=== PATIENT | male | born 2000 | race Caucasian/White ===

== ENCOUNTER 2021-11-12 04:19 | Emergency (ER) | payer MEDICAID, SELFPAY ==
[2021-11-12 04:20] VITALS: BP 128/89; PULSE 93; RESP 18; TEMP 36.2; O2SAT 96; BMI 40.4
--- NOTE | 2021-11-12 04:28 | RAD_ITS ---
HISTORY: cough EXAMINATION/TECHNIQUE: XR Chest 1 View: COMPARISON: May 22, 2012 FINDINGS: LINES/DEVICES: None. LUNGS: No airspace consolidation. Unremarkable interstitium. No effusion. No pneumothorax. MEDIASTINUM: No cardiomegaly. MUSCULOSKELETAL: No acute osseous finding. RAD/Chest 1 View (Portable) IMPRESSION: No evidence of acute cardiopulmonary process. at 0449 Reported and signed by: Aj Gomez MD Electronically Signed: Aj Gomez MD at 4:48 EST ,
--- NOTE | 2021-11-12 04:29 | EX.ED.DYSGE1 ---
HPI History of Present Illness Chief Complaint: Cough Informant: patient Onset/Context/Timing Onset: Days Context: Gradual Onset Current Severity: Mild Maximum Severity: Moderate Narrative Narrative: Patient presents secondary to cough and congestion for the past couple days. He states he went to the urgent care yesterday got tested for flu and Covid but would not have answers back for 48 hours. He is on his way to work this morning when he got a coughing fit and started dry heaving and vomiting. He denies having fever. He states he has yellow mucus from his nose and when he coughs. [facility] Medical History GERD (gastroesophageal reflux disease) Home Medications benzonatate 200 mg PO BID PRN #14 cap 11/12/21 [Rx Last Taken Unknown] pantoprazole 20 mg PO DAILY 11/12/21 [History Last Taken Unknown] Allergy/AdvReac Type Severity Reaction Status Date / Time No Known Allergies Allergy Verified 11/12/21 04:23 Social History Smoking Status: Current every day smoker tobacco type: cigarettes ROS ROS ED Constitutional Constitutional ED: Denies chills or fever(s) Eyes Eyes: Denies change in vision ENT ENT ED: Reports sore throat and other Details: Congestion Cardiovascular Cardiovascular: Denies chest pain Respiratory/Chest Respiratory/Chest: Reports cough, dyspnea and sputum Gastrointestinal Gastrointestinal: Reports vomiting and other Details: Posttussive emesis ; Denies abdominal pain, diarrhea or nausea Genitourinary Genitourinary ED: Denies dysuria Musculoskeletal Musculoskeletal: Denies back pain Integumentary Denies rash Neurologic Neurologic: Denies headache(s) or weakness Allergic/Immunologic Allergic/Immunologic ED: Denies urticaria EXAM Physical Exam Const Vital Signs: 11/12/21 04:20 11/12/21 04:24 Temperature 97.2 F L Temperature Source Temporal Pulse Rate 93 Respiratory Rate 18 Respiratory Effort Normal Non-Labored Respiratory Depth Normal Respiratory Pattern Normal Blood Pressure 128/89 H Blood Pressure Mean 102 Pulse Ox 96 Oxygen Delivery Method Room Air Room Air Positive well nourished and well developed General Appearance ED: well developed HEENT Reports moist mucous membranes Eyes PERRL and EOMs intact bilaterally Neck supple Chest Wall inspection of chest normal and palpation of chest normal Resp normal respiratory effort and clear to auscultation bilaterally Cardio regular rate and regular rhythm GI non-tender Palpation: soft Extremity normal to inspection Neuro oriented x3 Sensorium / Orientation: alert Psych mental status grossly normal Skin no rashes or lesions noted MDM MDM MDM Narrative Medical decision making narrative: Patient given Naprosyn and Tessalon Perles. Verbal chest x-ray and Covid swab obtained. Lab Data Attestation: I reviewed the patient's lab results. Labs: Rapid Covid: Negative Radiography Chest X-Ray - ED: 1 View, Read by ED Physician, Normal, Heart, Lungs and Mediastinum Diagnostic Testing: Clinical Impression(s) from Imaging Studies Chest X-Ray 11/12/21 04:28 IMPRESSION: No evidence of acute cardiopulmonary process. at 0449 Reported and signed by: Aj Gomez MD Electronically Signed: Aj Gomez MD at 4:48 EST , Treatment and Re-Evaluation Comments:: Rapid Covid test is negative. Chest x-ray reveals no infiltrate. Test results discussed with the patient. I did discuss with him that a viral illness will typically take 3 weeks to run its course. Return instructions provided. Prescription for Tessalon will be sent to the pharmacy for him. Discharge Plan Triage Chief Complaint: Cough ED Provider: Nata Terry Dx/Rx/DC Orders Clinical Impression: Viral URI Instructions: ED URI, Viral, No Abx (Adult) Prescriptions: New benzonatate 200 mg capsule 200 mg PO BID PRN (Reason: cough) Qty: 14 RF: 0 No Action pantoprazole 20 mg tablet,delayed release (DR/EC) 20 mg PO DAILY RF: 0 Primary Care Provider: Care Physician,No Primary Referrals: Davin Wheeler DO [STAFF PHYSICIAN] - As Needed Care Physician,No Primary [Primary Care Provider] - Disposition Disposition: Home, Self Care
[2021-11-12] MEDS: Benzonatate 100 MG Capsule 200 MG PO (04:34)
[2021-11-12] MEDS: Naproxen 500 MG Tablet PO (04:34)
== END 2021-11-12 05:40 | disposition home or self-care (01) ==
PROVIDERS: Emergency Provider Emergency Medicine; Visit Provider Emergency Medicine
DX: J06.9 Acute upper respiratory infection, unspecified (principal); F17.210 Nicotine dependence, cigarettes, uncomplicated; K21.9 Gastro-esophageal reflux disease without esophagitis
CPT/HCPCS: 71045; 87426; 99283

== ENCOUNTER 2022-03-14 16:04 | Emergency (ER) | payer MEDICAID, SELFPAY ==
[2022-03-14 16:05] VITALS: BP 146/88; PULSE 92; RESP 16; TEMP 36.6; O2SAT 98; BMI 38.7
[2022-03-14 16:54] VITALS: BP 126/78; PULSE 78; RESP 16; TEMP 36.9; O2SAT 98
[2022-03-14] MEDS: Gentamicin Sulfate 1 OPTH.BTL 2 DRP RIGHT EYE (16:54)
--- NOTE | 2022-03-14 17:08 | EX.ED.VIS.EY ---
HPI History of Present Illness Chief Complaint: Eye Problem Narrative Narrative: 20-year-old male with right eye swelling and erythema to the right eye. He states it was worse earlier. Patient is a noncontact wearer. He denies any trauma. He denies pain with eye movement. He denies visual complaint. No known sick contacts. His eye is slightly watery however is not had matted eyelids. PFSH PFS Medical History (Updated 03/14/22 @ 16:11 by Slade Ferreira) GERD (gastroesophageal reflux disease) Seasonal allergies Home Medications benzonatate 200 mg PO BID PRN #14 cap 11/12/21 [Rx Last Taken Unknown] pantoprazole 20 mg PO DAILY 11/12/21 [History Last Taken Unknown] gentamicin 1 drp EACH EYE BID #5 ml 03/14/22 [Rx Last Taken Unknown] Allergy/AdvReac Type Severity Reaction Status Date / Time No Known Allergies Allergy Verified 03/14/22 16:06 Social History Smoking Status: Current every day smoker tobacco type: cigarettes ROS ROS ED Constitutional Constitutional ED: Denies chills, fever(s) or sweats Eyes Eyes: Reports other Details: Right eye irritation and redness ; Denies blurry vision or change in vision ENT ENT ED: Denies ear pain or sore throat Cardiovascular Cardiovascular: Denies chest pain, palpitations or racing heartbeat Respiratory/Chest Respiratory/Chest: Denies cough, dyspnea or sputum Gastrointestinal Gastrointestinal: Denies abdominal pain, constipation, diarrhea, nausea or vomiting Genitourinary Genitourinary ED: Denies dysuria, hematuria or urinary frequency Musculoskeletal Musculoskeletal: Denies arthralgias, myalgias or neck pain Integumentary Denies abscess, Abrasions or rash Neurologic Neurologic: Denies headache(s), paresthesias or weakness Psychiatric Psychiatric: Denies anxiety, depression, suicidal ideation or suicidal thoughts Endocrine Endocrinology: Denies polydipsia or polyuria EXAM Physical Exam Const Vital Signs: 03/14/22 16:05 03/14/22 16:54 Temperature 98 F 98.4 F Temperature Source Temporal Pulse Rate 92 78 Respiratory Rate 16 16 Blood Pressure 146/88 H 126/78 H Blood Pressure Mean 107 Pulse Ox 98 98 Oxygen Delivery Method Room Air Positive well nourished General Appearance ED: Negative for pallor HEENT Reports normocephalic, head/scalp atraumatic and moist mucous membranes Eyes PERRL and EOMs intact bilaterally Eyes Narrative: No pain with extraocular motion Alignment: alignment normal Periorbital: periorbital findings normal Eyelid: eyelids normal Conjunctiva: conjunctiva abnormal right injection diffuse Sclera: sclera abnormal Positive for right Details: scleral injection Details: Positive for diffuse Cornea: cornea normal Pupil: PERRL Neck no lymphadenopathy and supple Chest Wall inspection of chest normal and palpation of chest normal Resp normal respiratory effort and clear to auscultation bilaterally Auscultation: Negative for rales, rhonchi or wheezes Cardio regular rate and regular rhythm GI normal to inspection, nondistended, normoactive bowel sounds Narrative: Deferred Back/Spine Cervical Spine: Negative for cervical spine tenderness Extremity General Extremety ED: Yes tenderness Neuro oriented x3 and CN's II-XII intact bilaterally Sensorium / Orientation: alert Motor Exam: strength 5/5 throughout Psych mental status grossly normal Attitude: No agitated Skin no rashes or lesions noted and no wounds General Skin Exam: Negative for jaundice or pallor MDM MDM MDM Narrative Medical decision making narrative: Patient with scleral injection in the right eye. His eyelids do not appear red and matted. No history or signs of trauma. Vision is normal. He is a noncontact wearer. Patient will be started on gentamicin ophthalmic with first dose in the ER as he is concerned for bacterial infection. Patient given ophthalmology follow-up. Impression: 1. Conjunctivitis Discharge Plan Triage Chief Complaint: Eye Problem ED Provider: Donato Craven Dx/Rx/DC Orders Instructions: ED Conjunctivitis, Bacterial Prescriptions: New gentamicin 0.3 % drops 1 drp EACH EYE BID Qty: 5 RF: 0 No Action pantoprazole 20 mg tablet,delayed release (DR/EC) 20 mg PO DAILY RF: 0 benzonatate 200 mg capsule 200 mg PO BID PRN (Reason: cough) Qty: 14 RF: 0 Stand Alone Forms: ED Work / School Excuse Primary Care Provider: Care Physician,No Primary Referrals: Dieter León MD [STAFF PHYSICIAN] - 3-5 Days Care Physician,No Primary [Primary Care Provider] - Disposition Disposition: Home, Self Care Discharge Date/Time: 03/14/22 16:58
== END 2022-03-14 16:58 | disposition home or self-care (01) ==
PROVIDERS: Emergency Provider Student in an Organized Health Care Education/Training Program; Visit Provider Student in an Organized Health Care Education/Training Program
DX: H10.9 Unspecified conjunctivitis (principal); F17.210 Nicotine dependence, cigarettes, uncomplicated; K21.9 Gastro-esophageal reflux disease without esophagitis
CPT/HCPCS: 99282

== ENCOUNTER 2022-04-27 00:25 | Emergency (ER) | payer MEDICAID, SELFPAY ==
[2022-04-27 00:26] VITALS: BP 159/94; PULSE 69; RESP 18; TEMP 36.5; O2SAT 98; BMI 40.4
--- NOTE | 2022-04-27 01:06 | EDS_ITS ---
HPI History of Present Illness Chief Complaint: Dental Narrative Narrative: Patient is a 21-year-old male who states he has a history of dental problems. He states he believes a filling fell out a few weeks ago and over the last few days has been having increased left upper facial/dental pain with no trauma. He denies any fevers or chills or difficulty breathing or swallowing. He states he cannot get into see his dentist for about 10 days and with concern for infection he presents for evaluation. [facility] Medical History (Updated 04/27/22 @ 01:[address] Conor Garcia DO) GERD (gastroesophageal reflux disease) Seasonal allergies Home Medications benzocaine 10 % mucosal gel 1 applic mucous membrane Q1H 04/27/22 [History Last Taken Unknown] penicillin V potassium 500 mg tablet 500 mg PO 4X/DAY 10 days #40 tabs 04/27/22 [Rx Last Taken Unknown] Allergy/AdvReac Type Severity Reaction Status Date / Time No Known Allergies Allergy Verified 04/27/22 00:29 Social History Smoking Status: Current every day smoker tobacco type: cigarettes ROS ROS ED Constitutional Constitutional ED: Denies chills or fever(s) ENT ENT ED: Reports other Details: Positive dental pain ; Denies sore throat Cardiovascular Cardiovascular: Denies chest pain Respiratory/Chest Respiratory/Chest: Denies cough or dyspnea Gastrointestinal Gastrointestinal: Denies abdominal pain, diarrhea, nausea or vomiting Genitourinary Genitourinary ED: Denies dysuria Musculoskeletal Musculoskeletal: Denies myalgias Integumentary Denies rash Neurologic Neurologic: Denies headache(s) Hematologic/Lymphatic Hematologic/Lymphatic: Denies easy bleeding or easy bruising EXAM Physical Exam Const Vital Signs: 04/27/22 00:26 04/27/22 01:41 Temperature 97.7 F L 98.2 F Temperature Source Temporal Temporal Pulse Rate 69 78 Respiratory Rate 18 15 Blood Pressure 159/94 H 132/74 H Blood Pressure Mean 115 93 Pulse Ox 98 99 Oxygen Delivery Method Room Air Room Air Positive well nourished and well developed General Appearance ED: well developed HEENT Reports moist mucous membranes HEENT Narrative: Dental caries are noted without obvious dental abscess no tongue or lip swelling no oral lesions no airway edema or compromise Eyes PERRL and EOMs intact bilaterally Neck supple Neck Narrative: No brawny edema in the submental space to suggest Olu's angina Resp normal respiratory effort and clear to auscultation bilaterally Cardio regular rate and regular rhythm Extremity normal to inspection Neuro oriented x3 and CN's II-XII intact bilaterally Sensorium / Orientation: alert Psych mental status grossly normal Skin no rashes or lesions noted MDM MDM MDM Narrative Medical decision making narrative: Patient presented to the ER afebrile without signs of respiratory distress or Olu's angina. Therefore I felt no need for imaging or laboratory studies. Patient's history and exam is consistent with an underlying early dental infection. Therefore he will be placed on Pen-Vee K secondary to this. He was given a dental block to the left superior alveolar nerve using 1.5 mL of 2% lidocaine with epinephrine and 1.5 mL of 0.5% Marcaine. Patient tolerated procedure well and achieved good anesthesia without complication. At this time as he has no signs of systemic infection or respiratory distress he is otherwise safe for discharge Discharge Plan Triage Chief Complaint: Dental ED Provider: Conor Garcia Dx/Rx/DC Orders Clinical Impression: Dental infection, Dental caries Instructions: ED Dental Pain, ED Dental Abscess Prescriptions: New penicillin V potassium 500 mg tablet 500 mg PO 4X/DAY 10 Days Qty: 40 0RF No Action Orajel 10 % Gel 1 applic MUCOUS MEMBRANE Q1H Stand Alone Forms: ED Work / School Excuse Primary Care Provider: Care Physician,No Primary Referrals: Care Physician,No Primary [Primary Care Provider] - Activity Restrictions/Additional Instructions: Please use Tylenol and Motrin for pain control and take your antibiotic as directed to resolve your infection. Keep your appointment with your dentist for further evaluation and return to the ER should you have any further concerns Disposition Disposition: Home, Self Care Discharge Date/Time: 04/27/22 01:42
[2022-04-27] MEDS: Bupivacaine Mpf 0.5% 30 ML VIAL INFILT (01:14)
[2022-04-27] MEDS: Penicillin Vk 250 MG Tablet 500 MG PO (01:14)
[2022-04-27 01:41] VITALS: BP 132/74; PULSE 78; RESP 15; TEMP 36.8; O2SAT 99
== END 2022-04-27 01:42 | disposition home or self-care (01) ==
LOC: ED 01:14
PROVIDERS: Emergency Provider Emergency Medicine; Visit Provider Emergency Medicine
DX: K04.7 Periapical abscess without sinus (principal); K02.9 Dental caries, unspecified; F17.210 Nicotine dependence, cigarettes, uncomplicated; K21.9 Gastro-esophageal reflux disease without esophagitis
CPT/HCPCS: 64450; 99282

== ENCOUNTER 2022-06-16 16:57 | Emergency (ER) | payer MEDICAID, SELFPAY ==
[2022-06-16 16:58] VITALS: BP 155/88; PULSE 99; RESP 16; TEMP 36; O2SAT 98; BMI 37.3
--- NOTE | 2022-06-16 17:27 | EX.ED.UPPERE ---
HPI History of Present Illness Chief Complaint: Laceration Informant: patient Narrative Narrative: [id number] male presents mandolin slicer injury to the left pinky finger at work. No anticoagulations. Tetanus 2 years ago. Bleeding with a pressure dressing. Denies history of similar. No allergies. No other injuries. Tetanus Immunization: <[address] [facility] Medical History GERD (gastroesophageal reflux disease) Seasonal allergies Home Medications benzocaine 10 % mucosal gel 1 applic mucous membrane Q1H 04/27/22 [History Last Taken Unknown] penicillin V potassium 500 mg tablet 500 mg PO 4X/DAY 10 days #40 tabs 04/27/22 [Rx Last Taken Unknown] Allergy/AdvReac Type Severity Reaction Status Date / Time No Known Allergies Allergy Verified 06/16/22 16:59 Social History Smoking Status: Current every day smoker tobacco type: cigarettes ROS ROS ED Constitutional Constitutional ED: Denies chills, fever(s) or sweats Eyes Eyes: Denies change in vision ENT ENT ED: Denies dysphagia or sore throat Cardiovascular Cardiovascular: Denies chest pain, leg edema, palpitations or racing heartbeat Respiratory/Chest Respiratory/Chest: Denies cough, dyspnea or dyspnea on exertion Gastrointestinal Gastrointestinal: Denies abdominal pain, diarrhea, nausea or vomiting Genitourinary Genitourinary ED: Denies dysuria, hematuria or urinary frequency Musculoskeletal Musculoskeletal: Denies back pain, extremity pain or neck pain Integumentary Reports wounds and other Details: Left pinky injury ; Denies rash Neurologic Neurologic: Denies headache(s), paresthesias or weakness EXAM Physical Exam Const Vital Signs: 06/16/22 16:58 Temperature 96.8 F L Temperature Source Temporal Pulse Rate 99 Respiratory Rate 16 Blood Pressure 155/88 H Blood Pressure Mean 110 Pulse Ox 98 Oxygen Delivery Method Room Air Positive well nourished and well developed General Appearance ED: well developed and NAD HEENT Reports moist mucous membranes normocephalic and atraumatic Eyes PERRL, EOMs intact bilaterally and conjunctivae normal General Eye ED: Yes normal appearance of both eyes Neck no lymphadenopathy and supple General: Negative for tenderness Chest Wall Chest: Negative for tenderness Resp normal respiratory effort and normal air movement Effort and Inspection: symmetric chest movement; Negative for respiratory distress Cardio regular rate, regular rhythm and no murmurs Peripheral Pulses: pulses 2+ throughout GI normal to inspection, nondistended, normoactive bowel sounds and non-tender Palpation: Negative for guarding or rebound tenderness present Back/Spine no CVA tenderness and no thoracic nor lumbar tenderness Extremity Extremity Narrative: Left hand pinky: Partial-thickness slice of the volar aspect of the distal lateral pinky ulnar side. No nail bed involvement. Minimal bleeding. No joint involvement. General Extremety ED: Negative for edema or tenderness General Extremity: Negative for edema Neuro oriented x3 and no sensory deficits noted Sensorium / Orientation: awake and alert Skin no rashes or lesions noted and no wounds MDM MDM MDM Narrative Medical decision making narrative: Patient is skin avulsion from slicer, thoroughly cleanse, LET was placed, bleeding controlled. Surgifoam pad with dressing was placed. Appropriate work restrictions and follow-up with [employer] [facility]. Wound care discussed. AlumaFoam cage splint provided. Discharge Plan Triage Chief Complaint: Laceration ED Provider: Dave Manuel Dx/Rx/DC Orders Clinical Impression: Avulsion of skin of finger, Injury of left little finger Instructions: ED Skin Avulsion Prescriptions: No Action Orajel 10 % Gel 1 applic MUCOUS MEMBRANE Q1H penicillin V potassium 500 mg tablet 500 mg PO 4X/DAY 10 Days Qty: 40 0RF Primary Care Provider: Care Physician,No Primary Referrals: Care Physician,No Primary [Primary Care Provider] - Activity Restrictions/Additional Instructions: No handling of food with injured hand. Follow-up with [facility] for [employer] [facility] of your choice. Disposition Disposition: Home, Self Care Discharge Date/Time: 06/16/22 18:58
[2022-06-16] MEDS: Lidocaine/Epi/Tetracaine 50 ML 1 APPLIC TOPICAL (17:33)
[2022-06-16] MEDS: Gelatin Sponge Absorbable 50cm (1) 1 EACH TOPICAL (18:39)
== END 2022-06-16 18:58 | disposition home or self-care (01) ==
PROVIDERS: Emergency Provider Emergency Medicine; Visit Provider Emergency Medicine
DX: S69.92XA Unspecified injury of left wrist, hand and finger(s), initial encounter (principal); F17.210 Nicotine dependence, cigarettes, uncomplicated; K21.9 Gastro-esophageal reflux disease without esophagitis; W26.8XXA Contact with other sharp object(s), not elsewhere classified, initial encounter; Y99.0 Civilian activity done for income or pay
CPT/HCPCS: 99283

== ENCOUNTER 2022-08-01 17:14 | Emergency (ER) | payer MEDICAID, SELFPAY ==
[2022-08-01 17:15] VITALS: BP 135/80; PULSE 90; PULSE 92; RESP 16; TEMP 36.7; O2SAT 98; O2SAT 99; BMI 40.1
[2022-08-01] MEDS: DiphenhydrAMINE 50 MG/ML Syringe 25 MG IV (17:40)
--- NOTE | 2022-08-01 18:07 | EDS_ITS ---
HPI History of Present Illness Chief Complaint: Allergic Reaction Informant: patient Onset/Context/Timing Onset: Today (20 min ago) Context: Sudden Onset (about 10 min after eating) Timing: Continuous Quality: swelling, congestion Location: face/nose Current Severity: Moderate Maximum Severity: Moderate Worsened by: nothing Relieved by: nothing Associated Symptoms Associated Symptoms: scratchy throat, mild trouble breathing Narrative Narrative: Patient ate shrimp [place]in mein from a local [employer] restaurant, in addition to sushi from a local grocery store that had imitation crab as well as some raw salmon and maybe some raw tuna. He states he eats this combination of food often. He has never had an allergic reaction but states 10 minutes later, his eyelids swelled and he developed lots of nasal congestion and scratchy throat without throat swelling. He felt short of breath, he agrees that it is mostly because of all of the nasal congestion, he denies any symptoms in his chest, hands, feet, no rash or itching. Denies any near-syncope or syncope or chest discomfort. PFSH PFS Medical History GERD (gastroesophageal reflux disease) Seasonal allergies Smoker Home Medications omeprazole 40 mg capsule,delayed release 40 mg PO DAILY 08/01/22 [History Last Taken Unknown] prednisone 20 mg tablet 40 mg PO QHS #4 TABLETS 08/01/22 [Rx Last Taken Unknown] Allergy/AdvReac Type Severity Reaction Status Date / Time No Known Allergies Allergy Verified 08/01/22 17:15 Social History Smoking Status: Current every day smoker tobacco type: cigarettes ROS ROS ED Constitutional Constitutional ED: Denies chills or fever(s) Eyes Eyes: Denies change in vision or diplopia ENT ENT ED: Reports as per HPI, nasal congestion and sore throat; Denies dizziness or rhinorrhea Cardiovascular Cardiovascular: Reports leg edema; Denies chest pain or palpitations Respiratory/Chest Respiratory/Chest: Denies cough or dyspnea Gastrointestinal Gastrointestinal: Denies abdominal pain, diarrhea, nausea or vomiting Genitourinary Genitourinary ED: Denies dysuria or hematuria Musculoskeletal Musculoskeletal: Denies back pain or neck pain Integumentary Denies abscess or rash Neurologic Neurologic: Denies headache(s), paresthesias or weakness Psychiatric Psychiatric: Denies anxiety or suicidal thoughts EXAM Physical Exam Const Vital Signs: 08/01/22 17:15 08/01/22 17:15 Temperature 98.0 F Temperature Source Temporal Pulse Rate 92 90 Respiratory Rate 16 16 Blood Pressure 135/80 H 135/80 H Blood Pressure Mean 98 98 Pulse Ox 98 99 Oxygen Delivery Method Room Air Room Air Positive well nourished and well developed General Appearance ED: well developed and NAD HEENT Reports moist mucous membranes HEENT Narrative: Eyelids are edematous, eyes are normal. Nasal congestion. No stridor. Posterior pharynx clear and without erythema, asymmetry. There is no trismus. Voice normal. normocephalic and atraumatic Eyes PERRL and EOMs intact bilaterally Neck full ROM, no lymphadenopathy and supple Resp normal respiratory effort and clear to auscultation bilaterally Cardio regular rate, regular rhythm and no murmurs GI non-tender and non-distended Auscultation: normoactive bowel sounds Palpation: soft Back/Spine no CVA tenderness General Back: other FROM Extremity normal to inspection Extremity Narrative: No edema in upper or lower extremities General Extremety ED: Negative for edema, pulses abnormal or tenderness General Extremity: Negative for edema or pulses abnormal Neuro oriented x3, CN's II-XII intact bilaterally and no sensory deficits noted Sensorium / Orientation: awake and alert Motor Exam: strength 5/5 throughout Skin no rashes or lesions noted and no wounds MDM MDM MDM Narrative Medical decision making narrative: Patient's vital signs are normal and he is not edematous except for his eyelids. He has no pain there. That and his nasal congestion suggest possibly a histamine mediated swelling in his face, making scombroid fish poisoning in the differential diagnosis here more so than anaphylaxis. Not able to rule out some type of allergic reaction, but I gave him Benadryl 25 mg IV and monitored him, he states it helped some, he did still have some swelling and nasal congestion, he developed no worsening symptoms his vital signs remain normal, so I will give him a dose of Solu-Medrol and sent him home with a 2-day course of prednisone in addition to today, and advised Benadryl as needed and to avoid the raw fish from this particular area in the future. We discussed signs and symptoms of anaphylaxis and reasons to return. Discharge Plan Triage Chief Complaint: Allergic Reaction ED Provider: Shan Jin Dx/Rx/DC Orders Clinical Impression: Scombroid fish poisoning, accidental (unintentional), initial encounter Instructions: ED Scombroid Fish Poisoning Prescriptions: New prednisone 20 MG tablet 40 mg PO QHS Qty: 4 0RF No Action omeprazole 40 mg Capsule,Delayed Release(Dr/Ec) 40 mg PO DAILY Primary Care Provider: Care Physician,No Primary Referrals: Care Physician,No Primary [Primary Care Provider] - Doctor,Your [Non-Staff] - 3-5 Days if not improving Disposition Disposition: Home, Self Care
[2022-08-01 18:55] VITALS: BP 109/66; PULSE 59; PULSE 64; RESP 19; O2SAT 94
[2022-08-01] MEDS: MethylPREDNISolone 125 MG/2 ML Vial IV (18:59)
== END 2022-08-01 19:03 | disposition home or self-care (01) ==
PROVIDERS: Emergency Provider Emergency Medicine; Visit Provider Emergency Medicine
DX: T61.11XA Scombroid fish poisoning, accidental (unintentional), initial encounter (principal); F17.210 Nicotine dependence, cigarettes, uncomplicated; Y92.511 Restaurant or cafe as the place of occurrence of the external cause; R09.81 Nasal congestion
CPT/HCPCS: 96374; 96375; 99284; A4216

== ENCOUNTER 2022-12-10 23:24 | Emergency (ER) | payer MEDICAID, SELFPAY ==
[2022-12-10 23:25] VITALS: BP 123/79; PULSE 101; RESP 19; TEMP 38.9; O2SAT 98; BMI 38.7
--- NOTE | 2022-12-11 00:15 | CT_ITS ---
STUDY: CT SOFT TISSUE NECK WITH CONTRAST REASON FOR EXAM: Male, 22 years old. Peritonsillar abscess ?? RADIATION DOSAGE (If Supplied By Facility): CTDIvol = ( 16.24 ) mGy, DLP = ( 499.10 ) mGycm TECHNIQUE: The patient was scanned in a multi-detector CT scanner. High resolution transaxial imaging was performed following intravenous administration of IV 100mL Isovue-370. Sagittal and coronal images were reconstructed. Individualized dose optimization techniques were used for this CT. COMPARISON: None. FINDINGS: Normal bilateral parotid glands. Normal bilateral robotic technician spaces. There is a mildly narrowed appearance of the parapharyngeal spaces due to the enlargement of the tonsillar tissues. Normal bilateral carotid spaces. Normal bilateral sublingual and submandibular glands and spaces. Normal visualized nasopharynx. Normal retropharyngeal space. Normal perivertebral space. There is an enlarged appearance of the bilateral partial tonsils which meet in the middle without evidence of abscess formation. This is best appreciated on image 52 series 601 and image 59 series 2. This does narrow the oral space. There are enlarged cervical lymph nodes. There are multilevel reactive appearing lymph nodes. There are lymph nodes, jugulodigastric lymph nodes on the left measuring 1.5 x 1.0 cm and on the right measuring 3.4 and 2.0 cm. There is a left-sided lymph node measuring 2.6 cm. There is no demonstrated solid or cystic mass lesion. There is no abnormal contrast enhancement. There are lymph nodes deep to the right-sided sternoclavicular muscle. There are multiple lymph nodes demonstrated along the posterior cervical spaces measuring up to 1 cm. Normal epiglottis, bilateral vallecula and hypopharynx. The pre-epiglottic and paraglottic adipose spaces are normal. Normal visualized bilateral piriform sinuses, aryepiglottic folds, vocal cords, and arytenoid-cricoid articulations. Normal subglottic trachea. Normal bilateral lobes of the thyroid gland. Normal visualized pulmonary apices. Normal visualized paranasal sinuses. Normal visualized cervical spine. CT/Soft Tissue Neck WITH Contrast IMPRESSION: Hypertrophy of the tonsillar tissues likely associated with tonsillitis as detailed above. No visualized abscess formation. Numerous reactive lymph nodes throughout the neck soft tissues. Electronically Signed: Nisa Lynn MD at 1:22 EST Reading Location ID and State: [facility] / [place] Tel , Service support ,
--- NOTE | 2022-12-11 00:18 | EX.ED.DYSGE1 ---
HPI History of Present Illness Chief Complaint: General Illness Detail of Chief Complaint: Sore throat Informant: patient Onset/Context/Timing Onset: Days Context: Gradual Onset Timing: Continuous Current Severity: Moderate Maximum Severity: Moderate Narrative Narrative: 22-year-old male past medical history of reflux and depression. Said he went to the [facility] urgent care 3 days ago said he had a negative rapid strep and negative mono and a put him on Augmentin for tonsillitis. Has been on Augmentin 875 twice daily for last 3 days. Said he is feeling his get any better. He has a sore throat but is able to swallow. He feels dehydrated. He said since he started the antibiotics the last 2 days he has had loose stools. Did not even know he had a fever until he presented today in triage and has a temperature of 102. Denies vomiting. Mild cough. Prior similar symptoms: Yes Recent Illness/Hospitalization: No PFSH PFSH Medical History GERD (gastroesophageal reflux disease) Seasonal allergies Smoker Home Medications amoxicillin 875 mg-potassium clavulanate 125 mg tablet 1 tab PO BID 12/10/22 [History Last Taken Unknown] Allergy/AdvReac Type Severity Reaction Status Date / Time No Known Allergies Allergy Verified 12/10/22 23:31 Surgical History no surgical history Social History Smoking Status: Current every day smoker tobacco type: cigarettes ROS ROS ED ROS Narrative Fever. Sore throat. Body aches. Cough. Review of Systems ROS Unobtainable: Denies due to encephalopathy Constitutional Constitutional ED: Reports chills and fever(s) Eyes Eyes: Denies blurry vision ENT ENT ED: Reports sore throat; Denies ear pain or rhinorrhea Cardiovascular Cardiovascular: Denies chest pain Respiratory/Chest Respiratory/Chest: Reports cough; Denies dyspnea Gastrointestinal Gastrointestinal: Reports diarrhea; Denies abdominal pain or nausea Genitourinary Genitourinary ED: Denies dysuria or hematuria Musculoskeletal Musculoskeletal: Denies arthralgias Integumentary Denies abscess Neurologic Neurologic: Denies headache(s) Psychiatric Psychiatric: Denies anxiety Endocrine Endocrinology: Denies cold intolerance Hematologic/Lymphatic Hematologic/Lymphatic: Reports none Allergic/Immunologic Allergic/Immunologic ED: Denies mouth swelling or tongue swelling EXAM Physical Exam Narrative Exam Narrative: 22-year-old male vital signs fever 102. Clinically looks lean and feel well does not look septic or toxic. H EENT exam TMs are unremarkable. Posterior pharynx is significantly swollen. Tonsils are touching. He has bilateral exudate. I do not see any obvious abscess. He is able to swallow. He has moist mucous membranes. Neck is nontender with no significant lymphadenopathy. No tracheal tenderness. No meningismus. Lungs are clear equal symmetrical. Dry cough. Heart tachycardic rate about 101 no murmur. Abdomen soft nontender. Moving all 4 extremities. Calves are nontender without edema. Neurologically is awake and alert. Skin no rashes. Const Vital Signs: 12/10/22 23:25 12/10/22 23:52 12/11/22 01:30 Temperature 102.0 F H 100.2 F H Temperature Source Temporal Oral Pulse Rate 101 H 87 Respiratory Rate 19 H 15 Respiratory Effort Normal Respiratory Pattern Normal Blood Pressure 123/79 H 106/55 L Blood Pressure Mean 93 72 Pulse Ox 98 97 Oxygen Delivery Method Room Air Room Air Positive well nourished, well developed and obese; Negative for cachectic, contractures or unkempt General Appearance ED: well developed and NAD; Negative for unkempt, cachectic, contractures, cyanotic, diaphoretic or pallor Nutritional Appearance: obese; Negative for cachectic HEENT Reports moist mucous membranes HEENT Narrative: Posterior pharyngeal erythema. Enlarged tonsils touching. Bilateral exudate. No obvious abscess seen. Negative for trauma or tenderness Eyes PERRL and EOMs intact bilaterally General Eye ED: Negative for pale conjunctiva or scleral icterus Neck no lymphadenopathy, supple and no JVD General: Negative for tenderness Lymph Lymphatic: Negative for other Chest Wall inspection of chest normal and palpation of chest normal Chest: Negative for other Resp normal respiratory effort and clear to auscultation bilaterally Effort and Inspection: Negative for retractions Auscultation: Negative for rales, rhonchi or wheezes Cardio regular rhythm, S1 normal heart sound, S2 normal heart sound and no murmurs; Negative for regular rate Rate: tachycardic GI normal to inspection, nondistended, normoactive bowel sounds, non-tender, non-distended and no masses Inspection: Negative for abdominal distention Palpation: soft; Negative for tender or guarding Back/Spine no CVA tenderness General Back: Negative for CVA tenderness Cervical Spine: Negative for cervical spine tenderness Thoracic Spine / Upper Back: Negative for thoracic spinal tenderness Lumbar Spine / Lower Back: Negative for lumbar spinal tenderness Extremity normal to inspection General Extremety ED: Negative for edema or tenderness General Extremity: Negative for edema Neuro oriented x3 and CN's II-XII intact bilaterally Sensorium / Orientation: alert; Negative for orientation impaired, lethargic or stuporous Motor Exam: strength 5/5 throughout Psych mental status grossly normal Appearance: Negative for unkempt Attitude: No agitated Mood & Affect: Negative for depressed, anxious or tearful Skin no rashes or lesions noted, no wounds and skin turgor normal General Skin Exam: elasticity normal; Negative for jaundice or pallor Lesions: No lesion noted Rashes: No rashes noted Trauma: Negative for abrasion Wounds: Negative for wounds noted MDM MDM MDM Narrative Medical decision making narrative: Young male has bilateral exudative tonsillitis. He is not improving on 3 days of Augmentin. Has a fever. Will be treated with IV fluids for dehydration. Tylenol for the fever. Labs are being obtained including a rapid strep and mono of her own even though these are he is already supposedly had these done in urgent care and reportedly were negative. CT of his neck to rule out a peritonsillar abscess since is not improving has been on antibiotics multiple days. Repeat exam patient is doing well at 2:10 AM. We went over all his test results and CAT scan. They are comfortable being discharged home. He will be referred to a local primary care physician and ENT if he is not improving. Fluids and rest. Tylenol Motrin. Warm salt water gargling Chloraseptic spray. Continue and finish his current antibiotic which is Augmentin. Lab Data Attestation: I reviewed the patient's lab results. Lab results narrative: CBC unremarkable white count 9. H&H of 15 and 44. Platelets 216. Electrolytes unremarkable potassium slightly low at 3.3 normal gap of 8 normal BUN and creatinine. Glucose 96. Monoscreen negative. Rapid strep and COVID both negative. CAT scan, soft tissue of the neck, shows no abscess. Consistent with tonsillitis. Read by the radiologist. Labs: Laboratory Results - last 24 hr 12/11/22 12/11/22 12/11/22 00:30 00:30 00:30 WBC 9.0 RBC 5.23 Hgb 15.4 Hct 44.4 MCV 84.9 MCH 29.4 MCHC 34.7 RDW Std Deviation 37.9 RDW Coeff of Yodit 12.3 Plt Count 216 MPV 8.8 Immature Gran % (Auto) 0.300 Neut % (Auto) 73.6 H Lymph % (Auto) 14.6 L [place] % (Auto) 11.1 H Eos % (Auto) 0.0 Baso % (Auto) 0.4 Absolute Neuts (auto) 6.6 Absolute Lymphs (auto) 1.31 Nucleated RBC % 0 Sodium 137 Potassium 3.3 L Chloride 101 Carbon Dioxide 28.0 Anion Gap 8 BUN 15 Creatinine 1.04 Estim Creat Clear Calc 113.09 Est GFR (MDRD) Af Amer 113 Est GFR (MDRD) Non-Af 93 BUN/Creatinine Ratio 14.4 Glucose 96 Calcium 9.0 Monoscreen Negative Radiography Diagnostic Testing: Clinical Impression(s) from Imaging Studies Soft Tissue Neck CT 12/11/22 00:15 IMPRESSION: Hypertrophy of the tonsillar tissues likely associated with tonsillitis as detailed above. No visualized abscess formation. Numerous reactive lymph nodes throughout the neck soft tissues. Electronically Signed: Nisa Lynn MD at 1:22 EST Reading Location ID and State: [facility] / [place] Tel , Service support , Discharge Plan Triage Chief Complaint: General Illness ED Provider: Will Carl Dx/Rx/DC Orders Clinical Impression: Acute tonsillitis Instructions: ED Tonsillitis Prescriptions: No Action amoxicillin-pot clavulanate 875-125 mg tablet 1 tab PO BID Label Comments: Take 1 tablet (oral) 2 times per day for 7 days Primary Care Provider: Care Physician,No Primary Referrals: Mejia Maya MD [Med Staff - Telegraphic Service Dispatcher] - 1 Week if not improving Harjinder Camilo MD [Med Staff - Active Staff] - 1 Week if not improving Care Physician,No Primary [Primary Care Provider] - Activity Restrictions/Additional Instructions: Your test, lab work and CAT scan were unremarkable tonight. Rapid strep and COVID were both negative. [place] was negative. The CAT scan showed no abscess. Continue and finish your current antibiotic. Warm salt water gargling. Chloraseptic spray. Motrin and Tylenol. Follow-up with primary care physician or ear nose and throat doctor if not improving. Disposition Disposition: Home, Self Care
[2022-12-11] MEDS: 0.9% Normal Saline 1,000 ML 1000 ML IV (00:37)
[2022-12-11] MEDS: Acetaminophen 500 MG Tablet 1000 MG PO (00:38)
[2022-12-11 00:39] LABS: Absolute Lymphocyte Count 1.31 X10^3/uL (0.83-4.51); Absolute Neutrophil Count 6.6 X10^3/uL (2.0-7.7); Basophil# 0.04 X10^3/uL; Basophil% 0.4 % (0-1); Hematocrit 44.4 % (40-54); Hemoglobin 15.4 g/dL (13.0-16.5); Lymphocyte # 1.31 X10^3/ul (0.83-4.51); Lymphocyte % 14.6 % (19-41); Mean Corp Hgb Conc 34.7 g/dL (32-36); Mean Corpuscular Hgb 29.4 pg (27.0-32.0); Mean Corpuscular Volume 84.9 fL (80-94); Mean Platelet Vol. 8.8 fl (6.2-12.0); Monocyte% 11.1 % (0-10); NRBC Flagged by Analyzer 0 % (0-5); Neutrophil % 73.6 % (47-70); Platelet Count 216 K/mm3 (150-450); RBC Distribution Width CV 12.3 % (11.6-14.6); RBC Distribution Width SD 37.9 fl (35.1-43.9); Red Blood Count 5.23 M/mm3 (4.6-6.2)
[2022-12-11 01:08] LABS: BUN 15 mg/dL (7-18); Creatinine, Serum 1.04 mg/dL (0.70-1.30); EST Glomerular Filtration Rate 93 mL/min (>60); Estimated Creatinine Clearance 113.09 ml/min; Glucose 96 mg/dL (74-106)
[2022-12-11 01:09] LABS: Anion Gap 8 (5-15); BUN/Creat Ratio 14.4 RATIO (10-20); Chloride 101 mmol/L (98-107); Est Glom Filt Rate - Afr Amer 113 mL/min (>60); Potassium 3.3 mmol/L (3.5-5.1); Sodium Level 137 mmol/L (136-145)
[2022-12-11 01:30] VITALS: BP 106/55; PULSE 87; RESP 15; TEMP 37.9; O2SAT 97
[2022-12-11 01:35] LABS: Internal QC Validated? YES +Cl - CLEAR BKGD; Monotest Negative (Negative)
== END 2022-12-11 02:23 | disposition home or self-care (01) ==
PROVIDERS: Emergency Provider Emergency Medicine; Visit Provider Emergency Medicine
DX: J03.90 Acute tonsillitis, unspecified (principal); F17.210 Nicotine dependence, cigarettes, uncomplicated; E86.0 Dehydration; R19.7 Diarrhea, unspecified; E66.9 Obesity, unspecified
CPT/HCPCS: 70491; 80048; 85025; 86308; 87811; 87880; 99283; J7030; Q9967; A4216

== ENCOUNTER 2023-05-11 15:40 | Emergency (ER) | payer MEDICAID, SELFPAY ==
[2023-05-11 15:42] VITALS: BP 162/89; PULSE 86; RESP 18; TEMP 36.7; O2SAT 98; BMI 40.4
--- NOTE | 2023-05-11 16:18 | ED.VIS.DENTA ---
HPI History of Present Illness Chief Complaint: Dental PFSH PFSH Medical History GERD (gastroesophageal reflux disease) Seasonal allergies Smoker Home Medications amoxicillin 875 mg-potassium clavulanate 125 mg tablet 1 tab PO BID 12/10/22 [History Last Taken Unknown] amoxicillin 875 mg-potassium clavulanate 125 mg tablet 1 tab PO BID #14 tabs 05/11/23 [Rx Last Taken Unknown] Allergy/AdvReac Type Severity Reaction Status Date / Time No Known Allergies Allergy Verified 05/11/23 15:41 Surgical History no surgical history Social History Smoking Status: Current every day smoker tobacco type: cigarettes EXAM Physical Exam Const Vital Signs: 05/11/23 15:42 Temperature 98.1 F Temperature Source Temporal Pulse Rate 86 Respiratory Rate 18 Blood Pressure 162/89 H Blood Pressure Mean 113 Pulse Ox 98 Oxygen Delivery Method Room Air MDM MDM MDM Narrative Medical decision making narrative: HISTORY OF PRESENT ILLNESS: 22-year-old male here with dental pain. Notes he is scheduled for dental visit in July. States he attempted to remove his chipped tooth with pliers this afternoon resulting in further chipping of that tooth in worsening pain. States he is now in severe pain. Denies any submandibular edema, drooling or neck stiffness. REVIEW OF SYSTEMS: Pertinent positives: Dental pain Pertinent negatives: PHYSICAL EXAM: Nursing triage notes reviewed, Vital signs reviewed Constitutional: please see mdm HENT: MMM, no evidence of dental abscess, no submandibular edema or induration, no tonsillar exudates or erythema, uvula midline, patient was controlling secretions, no drooling, no trimus, no dysphonia Eyes: Pupils equal round and reactive to light, Extraocular muscles intact Neck: No stridor, no JVD, full neck ROM Lungs: Clear to auscultation, No wheezing or rales. No increased work of breathing, no conversational dyspnea, no accessory muscle use, no nasal flaring. No respiratory distress noted Heart: Regular rate and rhythm, No murmurs, No rubs and No gallops, 2+ distal pulses (radial, femoral, posterior tibial) in all extremities MEDICAL DECISION MAKING: Chief Complaint: Dental pain MDM Narrative: The patient was hemodynamically stable, afebrile, nontoxic-appearing. I considered the following differential diagnosis: Dental abscess, ANUG, Ludewig's angina, RPA, PSYCHIATRY PHYSICIAN, dental caries, gingivitis Clinical exam consistent with chipped tooth. No evidence of Amy's angina, ANUG or dental abscess. We will give prophylactic antimicrobial therapy and instructions take Tylenol ibuprofen every 6 hours we will give local dental resources as well. History obtained from others: The patient's girlfriend Shared decision making: I will have a discussion with the patient and or visitors regarding risk/benefits of further testing or admission. They will be made aware of of the risk/benefits inherent in this decision they will be given the opportunity to voice understanding. Consults: None Discharge Plan Triage Chief Complaint: Dental ED Provider: Dale Carrasco Dx/Rx/DC Orders Clinical Impression: Chipped tooth Instructions: ED Dental Trauma Prescriptions: New amoxicillin-pot clavulanate 875-125 mg tablet 1 tab PO BID Qty: 14 0RF No Action amoxicillin-pot clavulanate 875-125 mg tablet 1 tab PO BID Patient Comments: Take 1 tablet (oral) 2 times per day for 7 days Stand Alone Forms: ED Work / School Excuse Primary Care Provider: Care Physician,No Primary Referrals: Care Physician,No Primary [Primary Care Provider] - Activity Restrictions/Additional Instructions: Thank you for trusting us with your care today! Please take Tylenol (2 pills, 650 mg), ibuprofen (2 pills, 400 mg) every 6 hours as needed for pain and fever control. Please take Augmentin as prescribed. Please return to the emergency department if your symptoms change or worsen. Specifically develop fever, difficulty swallowing, neck stiffness or swelling or any jaw. Please follow with y dentistry resources that have been provided for further outpatient evaluation and management. Disposition Disposition: Home, Self Care
== END 2023-05-11 17:03 | disposition home or self-care (01) ==
LOC: ED 16:34
PROVIDERS: Emergency Provider Emergency Medicine; Visit Provider Emergency Medicine
DX: K08.89 Other specified disorders of teeth and supporting structures (principal); F17.210 Nicotine dependence, cigarettes, uncomplicated

== ENCOUNTER 2023-05-30 09:37 | Emergency (ER) | payer MEDICAID, SELFPAY ==
[2023-05-30 09:38] VITALS: BP 137/78; PULSE 98; RESP 14; TEMP 36.6; O2SAT 98; BMI 39.1
--- NOTE | 2023-05-30 09:52 | EX.ED.DYSGE1 ---
HPI History of Present Illness Chief Complaint: Chest Other Informant: patient Onset/Context/Timing Onset: Today Narrative Narrative: Patient presents with burning in his chest when he takes a deep breath after vomiting. Patient states he has a history of reflux. Has been out of his Prilosec for the last 6 weeks or so. He has noted worsening reflux symptoms and today vomited secondary to his reflux. Following this he reports pain with deep breathing. PFSH PFSH Medical History GERD (gastroesophageal reflux disease) Seasonal allergies Smoker Home Medications omeprazole 40 mg capsule,delayed release 40 mg PO DAILY 6 weeks #42 caps 05/30/23 [Rx Last Taken Unknown] omeprazole magnesium 20 mg tablet,delayed release (Prilosec OTC) 20 mg PO DAILY 05/30/23 [History Last Taken Unknown] Allergy/AdvReac Type Severity Reaction Status Date / Time No Known Allergies Allergy Verified 05/30/23 09:38 Social History Smoking Status: Current every day smoker tobacco type: cigarettes ROS ROS ED Constitutional Constitutional ED: Denies chills or fever(s) Eyes Eyes: Denies change in vision or discharge from eye(s) ENT ENT ED: Denies discharge from eye(s), rhinorrhea or sore throat Cardiovascular Cardiovascular: Reports chest pain; Denies palpitations Respiratory/Chest Respiratory/Chest: Denies cough or dyspnea Gastrointestinal Gastrointestinal: Reports other Details: GERD ; Denies abdominal pain, diarrhea, nausea or vomiting Musculoskeletal Musculoskeletal: Denies back pain or extremity pain Integumentary Denies Abrasions or rash Neurologic Neurologic: Denies headache(s) or weakness Psychiatric Psychiatric: Denies anxiety or depression Allergic/Immunologic Allergic/Immunologic ED: Denies lip swelling or urticaria EXAM Physical Exam Const Vital Signs: 05/30/23 09:38 Temperature 97.8 F Temperature Source Temporal Pulse Rate 98 Respiratory Rate 14 Blood Pressure 137/78 H Blood Pressure Mean 97 Pulse Ox 98 Oxygen Delivery Method Room Air Positive well nourished and well developed General Appearance ED: well developed HEENT Reports normocephalic and head/scalp atraumatic Eyes PERRL and EOMs intact bilaterally Neck supple Chest Wall inspection of chest normal and palpation of chest normal Resp normal respiratory effort and clear to auscultation bilaterally Cardio regular rate and regular rhythm GI normal to inspection, nondistended, normoactive bowel sounds Palpation: soft Extremity normal to inspection Neuro oriented x3 and no sensory deficits noted Sensorium / Orientation: alert Motor Exam: strength 5/5 throughout Psych mental status grossly normal Skin no rashes or lesions noted MDM MDM MDM Narrative Medical decision making narrative: Given the patient's probable aspiration of gastric contents, 2 view chest x-ray is obtained to evaluate for evidence of infiltrate or pneumonitis. Treatment and Re-Evaluation :: 2 view chest x-ray per my interpretation reveals no evidence of infiltrate. Patient will be given prescription for Prilosec to restart his medication. Discharge Plan Triage Chief Complaint: Chest Other ED Provider: Nata Terry Dx/Rx/DC Orders Clinical Impression: Gastroesophageal reflux disease Instructions: ED GERD (Adult) Prescriptions: New omeprazole 40 mg capsule,delayed release(DR/EC) 40 mg PO DAILY 42 Days Qty: 42 0RF No Action omeprazole magnesium [Prilosec OTC] 20 mg tablet,delayed release (DR/EC) 20 mg PO DAILY Primary Care Provider: Care Physician,No Primary Referrals: Mejia Maya MD [Med Staff - Vessel Slagman] - 1-2 Weeks Care Physician,No Primary [Primary Care Provider] - Disposition Disposition: Home, Self Care
--- NOTE | 2023-05-30 10:05 | RAD_ITS ---
STUDY: X-RAY CHEST REASON FOR EXAM: Male, 22 years old. Aspiration TECHNIQUE: PA and lateral views of the chest. COMPARISON: Comparison is made with prior study dated November 12, 2021. FINDINGS: The lungs are clear and expanded. There is no demonstrated pleural abnormality. Normal size heart. Normal mediastinum and marco a. Normal visualized pulmonary arteries. Normal visualized aortic arch and descending thoracic aorta. Normal visualized thoracic spine. Normal visualized ribs, clavicles, and shoulders. There is no demonstrated abnormality of the visualized soft tissue structures of the upper abdomen. RAD/Chest PA and Lateral IMPRESSION: Normal x-ray examination of the chest. Electronically Signed: Tanner Blankenship MD at 10:30 EDT ,
== END 2023-05-30 10:34 | disposition home or self-care (01) ==
LOC: ED 10:33
PROVIDERS: Emergency Provider Emergency Medicine; Visit Provider Emergency Medicine
DX: K21.9 Gastro-esophageal reflux disease without esophagitis (principal); F17.210 Nicotine dependence, cigarettes, uncomplicated
CPT/HCPCS: 71046; 99283

== ENCOUNTER 2024-03-04 19:12 | Emergency (ER) | payer MEDICAID, SELFPAY ==
[2024-03-04 19:13] VITALS: BP 147/94; PULSE 109; RESP 16; TEMP 36.6; O2SAT 95; BMI 39.6
--- NOTE | 2024-03-04 19:48 | EKG12_ITS ---
Test Reason : overdose Blood Pressure : / mmHG Vent. Rate : 075 BPM Atrial Rate : 075 BPM P-R Int : 152 ms QRS Dur : 090 ms QT Int : 370 ms P-R-T Axes : 041 -45 002 degrees QTc Int : 413 ms Normal sinus rhythm Left anterior fascicular block Abnormal ECG Confirmed by Alden Pike ([id number]), dictionary editor JESUS KINNEY ([id number]) on 03/05/2024 12:59:44 PM Referred By: Confirmed By:Alden Pike
[2024-03-04] MEDS: 0.9% Normal Saline (1000mL) 1,000 ML 999 ML IV (19:51)
--- NOTE | 2024-03-04 19:51 | EDS_ITS ---
HPI History of Present Illness Chief Complaint: Overdose Narrative Narrative: 23-year-old male presenting for evaluation after ingesting too many Benadryl tablets. He states that somebody was mowing the grass next-door and the grass was making him feel itchy and allergic and his throat was scratchy so he took a handful of Benadryl he suspected over 10 but likely not more than 15. Patient states about an hour afterwards he started feeling lightheaded and had blurry vision. He also admitted to smoking marijuana an hour prior to this. He states he does smoke marijuana regularly. Denies alcohol use. Prior to this in his usual state of health. Patient states that he typically will take a handful of tablets when he takes something. He states that if he has GERD he will take a handful of omeprazole and if he has Claritin he will take that for allergies and handles well. He states he feels like it works faster that way. [facility] Medical History Smoker Seasonal allergies GERD (gastroesophageal reflux disease) Home Medications ?Medication ?Instructions ?Recorded ?Last Taken ?Type omeprazole 40 mg capsule,delayed 40 mg PO DAILY 6 weeks #42 caps 05/30/23 Unknown Rx release omeprazole magnesium 20 mg 20 mg PO DAILY 05/30/23 Unknown History tablet,delayed release (Prilosec OTC) Allergy/AdvReac Type Severity Reaction Status Date / Time No Known Allergies Allergy Verified 03/04/24 19:15 Social History Smoking Status: Current every day smoker tobacco type: cigarettes ROS ROS ED Constitutional Constitutional ED: Denies chills, fever(s) or sweats Eyes Eyes: Reports blurry vision; Denies change in vision ENT ENT ED: Reports other; Denies ear pain or sore throat Cardiovascular Cardiovascular: Reports other Details: Lightheadedness ; Denies chest pain, palpitations or racing heartbeat Respiratory/Chest Respiratory/Chest: Denies cough, dyspnea or sputum Gastrointestinal Gastrointestinal: Denies abdominal pain, constipation, diarrhea, nausea or vom iting Genitourinary Genitourinary ED: Denies dysuria, hematuria or urinary frequency Musculoskeletal Musculoskeletal: Denies arthralgias, myalgias or neck pain Integumentary Denies abscess, Abrasions or rash Neurologic Neurologic: Denies headache(s), paresthesias or weakness Psychiatric Psychiatric: Denies anxiety, depression, suicidal ideation or suicidal thoughts Endocrine Endocrinology: Denies polydipsia or polyuria EXAM Physical Exam Const Vital Signs: 03/04/24 19:13 03/04/24 20:12 Temperature 98 F Temperature Source Temporal Pulse Rate 109 H 77 Respiratory Rate 16 13 Blood Pressure 147/94 H 115/95 H Blood Pressure Mean 111 101 Pulse Ox 95 97 Oxygen Delivery Method Room Air Room Air Positive well nourished General Appearance ED: NAD; Negative for pallor HEENT Reports moist mucous membranes Eyes PERRL and EOMs intact bilaterally Chest Wall inspection of chest normal Resp normal respiratory effort and clear to auscultation bilaterally Auscultation: Negative for rales, rhonchi or wheezes Cardio regular rate Rate: tachycardic GI normal to inspection, nondistended, normoactive bowel sounds Neuro oriented x3 and CN's II-XII intact bilaterally Sensorium / Orientation: alert Motor Exam: strength 5/5 throughout Psych mental status grossly normal Skin no rashes or lesions noted General Skin Exam: Negative for jaundice or pallor MDM MDM MDM Narrative Medical decision making narrative: Dry mouth anticholinergic toxicity patient presenting with lightheadedness and b lurry vision after taking over 10 Benadryl 25 mg tablets. Patient is alert and awake in no acute distress. Discussed with poison control who states they would send in somebody who took over 300 mg. It is unclear how much she took but it does not sound like it much more than that if it was. Recommended EKG to look for QRS prolongation or QTc prolongation. States that will peak in about 2 hours. Recommended monitoring for at least 6 hours. Patient has been monitored here for 4 hours postingestion. His vital signs are stable exact tachycardic report he feels fine. He requesting discharge home and he is alert and oriented x 3 and has capacity to make the decision he understands that poison control recommended a couple more hours of monitoring however he is here with his significant other who will monitor him. Return precautions were discussed. Impression: 1. Benadryl overdose 2. Accidental ingestion Lab Data Attestation: I reviewed the patient's lab results. Discharge Plan Triage Chief Complaint: Overdose ED Provider: Donato Craven Dx/Rx/DC Orders Instructions: ED Accidental Ingestion ... Prescriptions: No Action omeprazole magnesium [Prilosec OTC] 20 mg tablet,delayed release (DR/EC) 20 mg PO DAILY omeprazole 40 mg capsule,delayed release(DR/EC) 40 mg PO DAILY 42 Days Qty: 42 0RF Primary Care Provider: Care Physician,No [facility] [place] [facility] - As Needed Care Physician,No Primary [Primary Care Provider] - Print Language: Slovenian Disposition Disposition: Home, Self Care
[2024-03-04 20:12] VITALS: BP 115/95; PULSE 77; RESP 13; O2SAT 97
[2024-03-04 21:00] VITALS: BP 129/74; PULSE 73; RESP 16; O2SAT 99
[2024-03-04 22:00] VITALS: BP 139/63; PULSE 75; RESP 16; TEMP 36.6; O2SAT 99
== END 2024-03-04 22:35 | disposition home or self-care (01) ==
PROVIDERS: Emergency Provider Student in an Organized Health Care Education/Training Program; Visit Provider Student in an Organized Health Care Education/Training Program
DX: T45.0X1A Poisoning by antiallergic and antiemetic drugs, accidental (unintentional), initial encounter (principal); R42 Dizziness and giddiness; F17.210 Nicotine dependence, cigarettes, uncomplicated; H53.8 Other visual disturbances; K21.9 Gastro-esophageal reflux disease without esophagitis; Z79.899 Other long term (current) drug therapy
CPT/HCPCS: 93005; 96360; 99282; J7030; A4216